=== PATIENT | female | born 1940 | race Caucasian/White ===

== ENCOUNTER 2019-06-20 14:32 | Outpatient (RCR) | payer MEDICARE | END 2019-06-21 | LOC: PT 14:32 | PROVIDERS: ATTEND Psychiatry & Neurology Clinical Neurophysiology | DX: R26.89 Other abnormalities of gait and mobility (principal); E11.42 Type 2 diabetes mellitus with diabetic polyneuropathy ==

== ENCOUNTER 2019-07-18 12:55 | Outpatient (RCR) | payer MEDICARE | END 2019-07-21 | LOC: PT 12:55 | PROVIDERS: ATTEND Psychiatry & Neurology Clinical Neurophysiology | DX: E11.42 Type 2 diabetes mellitus with diabetic polyneuropathy (principal); R26.89 Other abnormalities of gait and mobility ==

== ENCOUNTER → 2019-10-19 | Outpatient (CLI) | payer MEDICARE ==
--- NOTE | 2019-10-19 15:12 | Diagnostic Imaging Report ---
Examination: MRI SPINE LUMBAR WO CONTRAST History: Low back pain with numbness and weakness of the feet and ankles, respectively. Comparison studies: None Technique: Sagittal, coronal and axial T2 , sagittal T1 and STIR; axial spin density oblique. Findings: Number of lumbar vertebral bodies: Five. Alignment: Normal lordosis. No scoliosis. Soft tissues: No T2 hyperintense inflammatory changes. Posterior paraspinal soft tissues and muscles: No abnormality. Lower thoracic cord: Normal in signal and morphology. The tip of the conus is at L1. Cauda equina: No masses. No arachnoiditis. Vertebrae: No fractures, infection or neoplasm. Degenerative changes: L1-L2: Mild bilateral facet arthropathy. No disc herniation or canal or foraminal stenosis. L2-L3: No abnormalities. L3-L4: Mild diffuse disc bulge. Mild bilateral facet arthropathy. No foraminal or canal stenosis. L4-L5: Mild diffuse disc bulge and mild bilateral facet arthropathy result in mild left neural foraminal narrowing. No right foraminal or canal stenosis. L5-S1: Mild diffuse disc bulge and severe bilateral facet arthropathy. No foraminal or canal stenosis. IMPRESSION: Degenerative changes at L1-L2 and from L3-L4 through L5-S1 without canal or significant (no moderate or severe) foraminal stenosis. Signed by: Dr. Leda Esparza M.D. on 10/19/2019 3:09 PM
== END ==
LOC: MRI 11:56
PROVIDERS: ATTEND Psychiatry & Neurology Clinical Neurophysiology
DX: M47.27 Other spondylosis with radiculopathy, lumbosacral region (principal)
CPT/HCPCS: 72148